=== PATIENT | male | born 1980 | race Caucasian/White ===

== ENCOUNTER 2019-12-19 14:56 | Outpatient (CLI) | payer OTHER, SELFPAY ==
--- NOTE | 2019-12-19 15:00 | ECG_ITS ---
Measurements Intervals [facility] Rate: 80 P: 52 NV: 159 QRS: 53 QRSD: 92 T: 26 QT: 350 QTc: 404 Interpretive Statements SINUS RHYTHM BASELINE ARTIFACT- V6 NORMAL ECG Electronically Signed On 12-19-2019 15:37:14 CDT by Trev Jaramillo D.O.
== END 2019-12-19 14:57 | disposition home or self-care (01) ==
LOC: ANHSURGERY 15:00
PROVIDERS: PCP Family Medicine Adolescent Medicine; Visit Provider Orthopaedic Surgery
DX: Z87.891 Personal history of nicotine dependence (principal)
CPT/HCPCS: 93005

== ENCOUNTER 2019-12-22 00:42 | Outpatient (CLI) | payer OTHER, SELFPAY ==
[2019-12-22 16:46] LABS: SARS-CoV-2 RNA PCR Negative
== END 2019-12-22 00:43 | disposition home or self-care (01) ==
LOC: ANHCOVIDDT 00:42
PROVIDERS: PCP Family Medicine Adolescent Medicine; Visit Provider Orthopaedic Surgery
DX: Z01.818 Encounter for other preprocedural examination (principal); Z11.59 Encounter for screening for other viral diseases
CPT/HCPCS: 87635; C9803; U0003

== ENCOUNTER 2019-12-25 00:46 | Day surgery (SDC) | payer OTHER, SELFPAY ==
[2019-12-17 11:39] VITALS: BMI 25.1
[2019-12-25] VITALS (8 sets, daily range): BP systolic 100–127; BP diastolic 69–101; PULSE 53–80; RESP 10–20; TEMP 36.1–36.6; O2SAT 92–99
--- NOTE | 2019-12-25 07:37 | WPDHPUPDATE1 ---
History and Physical Update Update Date/Time: 12/25/19 07:37 History and Physical has been reviewed, including an updated exam of the patient. There are NO changes in the patient's condition. Risks, benefits, and alternatives have been discussed and questions answered. Patient agrees to proceed with procedure.
[2019-12-25] MEDS: LACTATED RINGERS 1,000 ML 30 ML IV CONT ×2 (09:15→11:32)
[2019-12-25] MEDS: CELECOXIB 200 MG CAPSULE PO (09:30)
--- NOTE | 2019-12-25 09:51 | WPDANESEPP ---
Anes - Eval Pre Procedure Procedure: Operation Date: 12/25/19 10:30 Proposed Procedures p Left Elbow Repair of Common Extensor Tendon - David Grimaldo MD Date/Time: 12/25/19 09:51 Pre Op Diagnosis: Left Lateral Epicondyoitis,Left Medial Epicondyoit Patient Data Age: 39 Gender: M Height: 5 ft 11 in Weight: 87.4 kg Last Vital Signs Temp 97.8 F 12/25/19 09:39 Pulse 67 12/25/19 09:39 Resp 18 12/25/19 09:39 BP 115/69 12/25/19 09:39 Pulse Ox 97 12/25/19 09:39 Allergies Allergy/AdvReac Type Severity Reaction Status Date / Time No Known Allergies Allergy Verified 12/25/19 09:36 Home Medications Medication Instructions Recorded Confirmed Type chlorhexidine gluconate 4 % 1 applic TOPICAL ONCE #237 ml 12/10/19 12/25/19 Rx topical liquid acetaminophen [Tylenol] 650 mg PO DIRECTED PRN 12/17/19 12/25/19 History ibuprofen 800 mg PO TID PRN 12/17/19 12/25/19 History Patient hx anesthesia problems: none Family hx anesthesia problems: none PMFSH Past Medical History Medical History History of smoking Lateral epicondylitis Left elbow pain Medial epicondylitis Family History Family History Father Family history of diabetes mellitus in first degree relative Other Cerebrovascular accident Family history of allergic disorder Family history of heart disease in male family member before age 55 Hypertension Social History Social History Smoking status: Former smoker Smoking end date: 08/01/16 Alcohol intake: current Exam Day of Procedure 12/25/19 09:51 Patient weight: overweight Heart: regular rate and rhythm Airway: Mallampati scale class II Neurological: alert and oriented
--- NOTE | 2019-12-25 09:59 | WPDANESEFPP ---
Anes - Eval Final PreProcedure Day of Procedure 12/25/19 09:59 Patient weight: overweight Heart: regular rate and rhythm Lungs: decreased breath sounds Airway: Mallampati scale class II Neurological: alert and oriented Last oral intake: >/= 8 hours ASA classification: II Emergent: no Anesthetic plan: proceed Anesthesia type and monitoring: general LMA and standard monitoring Informed Consent: The patient's anesthetic plan and its attendant risks and benefits were discussed with the patient/family/POA. Questions were solicited and answers provided to the satisfaction of the patient/family/POA.
[2019-12-25] MEDS: ceFAZolin 2 GM/D5W 50 ML 2 GM/50 ML BAG IVPB (10:25)
--- NOTE | 2019-12-25 11:31 | PM.OP ---
Procedure Note - Brief Procedure Note - Brief Date of procedure: 12/25/19 Pre-op diagnosis: Left Lateral Epicondyoitis,Left Medial Epicondyoit Post-op diagnosis: same Procedure performed: LEFT TENNIS ELBOW RELEASE WITH REPAIR OF COMMON EXTENSOR TENDON Anesthesia: ARMIDA Surgeon: David Grimaldo MD Estimated blood loss (mL): 5 Drains: No Packing: No Complications: No immediate complications Condition: stable Disposition: PACU
--- NOTE | 2019-12-25 12:24 | SUR.PHASEI ---
1224 UPDATED SPOUSE AND SAID HE HAS ABOUT AN HOUR UNTIL DISCHARGE
--- NOTE | 2019-12-25 14:40 | OP_ITS ---
DATE OF PROCEDURE: 12/25/2019 PREOPERATIVE DIAGNOSIS: Left lateral epicondylitis with common extensor tendon tear. POSTOPERATIVE DIAGNOSIS: Left lateral epicondylitis with common extensor tendon tear. PROCEDURE: Release of left tennis elbow with repair of common extensor tendon. ANESTHESIA: General. COMPLICATIONS: None. INDICATIONS: This is a 39-year-old male with severe lateral epicondylitis. MRI showed lateral epicondylitis with a tear of the common extensor tendon and he was indicated for tennis elbow release with repair of common extensor tendon. DESCRIPTION OF PROCEDURE: The patient was taken to the operative room in stable condition and placed in supine position. General anesthesia was induced and then, the left upper extremity was prepped and draped sterilely from the fingers to the mid arm. The tourniquet was inflated. Incision was made along the lateral condyle down to the subcutaneous tissues. The fascia was incised and then, dissection continued until the lateral epicondyle was identified. The common extensor tendon and mainly the extensor radialis brevis were identified, there was scarring and some devitalized tissue in that region. This tissue was debrided to good healthy tissue and then, 2 Mitek suture anchors were placed in the lateral epicondyle and then, the extensor radialis brevis and common extensor tendon were then reattached to the lateral epicondyle. The repair was excellent. The wound was irrigated thoroughly. The fascial layer then was approximated with #2-0 Vicryl, the subcutaneous tissue was approximated with 3-0 Vicryl, and the 3-0 running subcuticular Quill braided type stitch was used to approximate the skin and the subcuticular edges and then, Dermabond was placed. Steri-Strips was placed. Sterile dressing was applied. A wrist cock-up splint was placed. The patient was placed in a sling. He was extubated and sent to Recovery. Rickie I MT: Andres
== END 2019-12-25 13:35 | disposition home or self-care (01) ==
PROVIDERS: PCP Family Medicine Adolescent Medicine; Visit Provider Orthopaedic Surgery
PROC: (CPT 24359; principal; 2019-12-25 10:30)
DX: M77.12 Lateral epicondylitis, left elbow (principal); M66.222 Spontaneous rupture of extensor tendons, left upper arm; Z87.891 Personal history of nicotine dependence
CPT/HCPCS: 24359; A9270; C1713; J0131; J0690; J1100; J2250; J2405; J2704; J3010; J7120

== ENCOUNTER → 2020-10-10 10:30 | Outpatient (CLI) | payer OTHER, SELFPAY ==
--- NOTE | ~2020-10-10 | MR_ITS ---
EXAMINATION: MR elbow LT wo con DATE: 10/10/2020 11:21 INDICATION: Left elbow pain. TECHNIQUE: Magnetic resonance imaging (MRI) of the left elbow was performed without intravenous contr ast. Sequences included coronal, axial, and sagittal PD-weighted FS FSE and coronal, axial, and sagit delia PD-weighted FSE. COMPARISON: Left elbow radiographs 10/06/2020 FINDINGS: Osseous/other: Bone alignment is normal. No fracture. The cartilage is unremarkable. Tendons: The biceps tendon and brachialis tendon are normal. There is severe common extensor tendinopathy with surgical changes. There is severe common flexor tendinopathy with partial tear at the medial humeral epicondyle. A skin marker overlies this area. Ligaments: There is degeneration of radial collateral ligament and lateral collateral ligament without well-defi genna tear. Ulnar collateral ligament is normal. Cubital tunnel: Ulnar nerve is normal. Fluid: There is no elbow joint effusion. IMPRESSION: 1. Severe tendinopathy and partial tear of common flexor tendon at medial humeral epicondyle. 2. Severe tendinopathy and surgical changes of common extensor tendon at lateral humeral epicondyle. Reviewed, dictated and finalized at location A. NESS OBJECTS ANALYST IMPRESSION: 1. Severe tendinopathy and partial tear of common flexor tendon at medial humer al epicondyle. 2. Severe tendinopathy and surgical changes of common extensor tendon at latera l humeral epicondyle.
== END ==
PROVIDERS: Visit Provider Orthopaedic Surgery
DX: S56.212A Strain of other flexor muscle, fascia and tendon at forearm level, left arm, initial encounter (principal)
CPT/HCPCS: 73221

== ENCOUNTER 2021-12-23 00:59 | Day surgery (SDC) | payer OTHER, SELFPAY ==
[2021-12-21 18:06] VITALS: BMI 26.4
--- NOTE | 2021-12-21 18:20 | PC.NURSE ---
Report to the Outpatient Waiting Room, entrance under the green pavilion located off [facility], at time 1000 on date 12/23/21. OR Time: ___1200 - You and your visitor will be asked a series of questions to screen for COVID 19 for your protection. - Only one visitor is allowed at this time. - The patient visitor is requested to leave or wait in car when not with patient. - A mask is required within the hospital. Patients may have clear liquids (water, carbonated beverages, clear teas, apple juice) until 3 hours prior to surgery with a maximum of 20 ounces. - No food from midnight until time of surgery - Infants may have breast milk until 4 hours before surgery, infant formula 6 hours prior to surgery. - Children will be allowed to drink immediately following surgery. If applicable, please bring a bottle or sippy cup to assist with drinking. Juice, water, soda, and popsicles are readily available. For infants on formula, please bring formula the day of surgery. Pacifiers are allowed. Take the following medications with a SIP of water the morning of surgery: Medications to discontinue per physician Date to take last dose Please no make-up, nail turkmen, hairspray, perfume, deodorant, or body powder the day of surgery. No jewelry (including any body piercings) or valuables the day of surgery, leave them at home. Please take a shower or bath the night before, or the morning of, surgery with an antibacterial soap. Wear comfortable, loose fitting clothing. Children are encouraged to wear pajamas. - Jewelry must be removed prior to entering the operating room. Rings and piercings that are not removed may be cut off. - The hospital will not accept responsibility for valuables. - Please leave all valuables, including medications, at home the day of surgery. If you are going home after surgery, a licensed driver's education instructor must drive you home. - NO public transportation without another adult. - We recommend that an adult stay with you for 24 hours following discharge. - We also recommend that you do not drive, make important decision, drink alcoholic beverages, or take any drugs that were not prescribed by your health care provider for at least 24 hours after your discharge time. For Pediatric surgeries, we recommend two adults accompany the child home (only one inside the building at this time). Follow any additional instructions given to you from your surgeon. If you or anyone in your household have experienced Covid symptoms in the past week, please notify your surgeon or the nurse liaison at the phone number below for possible testing. Telephone instructions given to Tomasz Hung and asked if any additional questions and then verbalized understanding. Patient advised to call surgeon office or pre surgery nurse liaison [phone] if any additional questions.
[2021-12-23] VITALS (8 sets, daily range): BP systolic 101–128; BP diastolic 68–82; PULSE 50–64; RESP 8–16; TEMP 36.1–36.2; O2SAT 94–100
--- NOTE | 2021-12-23 07:14 | WPDHPUPDATE1 ---
History and Physical Update Update Date/Time: 12/23/21 07:14 History and Physical has been reviewed, including an updated exam of the patient. There are NO changes in the patient's condition. Risks, benefits, and alternatives have been discussed and questions answered. Patient agrees to proceed with procedure.
[2021-12-23] MEDS: ACETAMINOPHEN 500 MG TABLET 1000 MG PO (11:41)
[2021-12-23] MEDS: CELECOXIB 200 MG CAPSULE PO (11:42)
[2021-12-23] MEDS: KETOROLAC 15 MG/ML VIAL (*BKC) IV PUSH (11:43)
[2021-12-23] MEDS: LACTATED RINGERS 1,000 ML 30 ML IV CONT ×2 (11:45→15:20)
--- NOTE | 2021-12-23 12:00 | WPDANESEPPF ---
Anes - Initial Pre Proc Eval Procedure: Operation Date: 12/23/21 12:00 Proposed Procedures p Left Common Flexor Tendon Repair, Left Cubital Tunnel Release - David Grimaldo MD Date/Time: 12/23/21 12:00 Surgeon: David Grimaldo MD Pre Op Diagnosis: Lt Flexor Tendon Tear.Cubital Tunnel Syndrome Patient Data Age: 41 Gender: M Height: 1.8 m Weight: 86 kg Allergies Allergy/AdvReac Type Severity Reaction Status Date / Time No Known Allergies Allergy Verified 10/29/21 14:21 Home Medications Medication Instructions Recorded Confirmed Type ibuprofen 800 mg tablet 800 mg PO TID PRN Pain #90 tabs 08/24/21 12/21/21 Rx Patient hx anesthesia problems: none Family hx anesthesia problems: none Results Review: All pre-operative results and documents have been reviewed as part of the pre-operative evaluation. [facility] Past Medical History Medical History History of smoking Lateral epicondylitis Left elbow pain Medial epicondylitis Family History Family History Father Family history of diabetes mellitus in first degree relative Other Cerebrovascular accident Family history of allergic disorder Family history of heart disease in male family member before age 55 Hypertension Social History Social History (Updated 12/23/21 @ 12:05 by Antonio Capellan DO) Smoking packs per day: 0.5 Smoking cigarettes per day: 10.0 Years smoked: 10 Smoking pack-years: 5.00 Smoking status: Former smoker Tobacco type: cigarettes Smoking end date: 08/01/16 Alcohol intake: current Alcohol use details: at least 12 beers 3-5 days/week Substance use: current Substance use type: marijuana Other substance usage details: medical marijuana Last use: 12/07/21 Living arrangements: with family Gender identity (if verbalized by the patient): Male Sexual Orientation (if Verbalized by the Patient): Straight or Heterosexual Spiritual care concerns: No Anes - Eval Final PreProcedure Day of Procedure 12/23/21 12:00 Patient weight: overweight Heart: regular rate and rhythm Lungs: clear to auscultation Airway: Mallampati scale class II Neurological: alert and oriented Last oral intake: >/= 8 hours ASA classification: III Emergent: no Anesthetic plan: proceed Anesthesia type and monitoring: general LMA and standard monitoring Results Review: All pre-operative results and documents have been reviewed as part of the pre-operative evaluation. Informed Consent: The patient's anesthetic plan and its attendant risks and benefits were discussed with the patient/family/POA. Questions were solicited and answers provided to the satisfaction of the patient/family/POA.
[2021-12-23] MEDS: ceFAZolin 2 GM/D5W 50 ML 2 GM/50 ML BAG IVPB (13:19)
[2021-12-23] MEDS: BUPIVACAINE HCL 0.5% PF 30 ML VIAL 20 ML INFILTRATE (14:47)
--- NOTE | 2021-12-23 15:00 | W.PM.PROC2 ---
Procedure Note - Detailed Date of Procedure 12/23/21 Pre-op Diagnosis Lt Flexor Tendon Tear.Cubital Tunnel Syndrome Post-op Diagnosis Same Procedure Performed LEFT COMMON FLEXOR TENDON REPAIR AND LEFT CUBITAL TUNNEL RELEASE Surgeon David Grimaldo MD Indications LEFT ELBOW CUBITAL TUNNEL SYNDROME, MEDIAL EPICONDYLITIS, COMMON FLEXOR TENDON TEAT Description of Procedure THE LEFT UPPER EXTREMITY WAS PREPPED AND DRAPED IN THE STERILE USUAL FASHION. THE MEDIAL SIDE OF THE ELBOW WAS IDENTIFIED. AN INCISION WAS MADE IN BETWEEN THE MEDIAL EPICONDYLE AND THE OLECRANON. THE SUB CUTANEOUS TISSUES WERE DISSECTED DOWN TO THE FASCIA LAYER. THE ULNAR NERVE WAS PALPATED. DISSECTION THROUGH THE FASCIA WAS PREFORMED UNTIL THE ULNAR NERVE WAS VISIBLE. THE CUBITAL TUNNEL THEN WAS RELEASED UNTIL THERE WAS A COMPLETE VISUALIZATION OF THE NERVE ENTERING AND EXITING THE CUBITAL TUNNEL THROUGH THE FCU TENDON. NEXT THE MEDIAL EPICONDYLE WAS EXPOSED. THE COMMON FLEXOR TENDON ORIGIN WAS IDENTIFIED. THE WAS DEGENERATIVE TISSUE AND PARTIAL TEARING OF THE OF THE ORIGIN. THE DEGENERATIVE TISSUE WAS REMOVED WITH A SHARP BLADE AND THE BONE WAS DEBRIDED TO A NICE BLEEDING BED OF BONE. THE TENDON WAS REINSERTED TO THE MEDIAL EPICONDYLE ON 3 ABSORBABLE MITEK SUTURE ANCHORS USING 0 ETHIBOND SUTURES AND A MODIFIED SEGUNDO-MJ TYPE REPAIR. THE REPAIR WAS EXCELLENT. 0 VICRYL WAS THEN USED THE REINFORCE THE TENDON EDGES. THE WOUND WAS IRRIGATED THOROUGHLY. THE TOURNIQUET WAS DEFLATED AND THE BLEEDERS CAUTERIZED. THE SUBCUTANEOUS TISSUES WERE APPROXIMATED WITH 3-0 VICRYL AND THE SKIN WITH 3-0 STRATAFIX SUTURE. DERMABOND WAS THEN APPLIED TO THE SKIN. STERILE DRESSING WAS APPLIED. A PLASTER SPLINT WAS APPLIED AND THE PATIENT WAS SENT TO THE RECOVERY ROOM IN STABLE CONDITION. Estimated Blood Loss 10 Complications No immediate complications Condition Stable Disposition PACU
[2021-12-23] MEDS: fentaNYL CITRATE INJ (*CRX) 100 MCG/2 ML VIAL 25 MCG IV PUSH ×2 (15:42→15:45)
[2021-12-23] MEDS: ONDANSETRON INJ 4 MG/2 ML VIAL IV PUSH (15:44)
[2021-12-23] MEDS: oxyCODONE HCL (*CRX) 5 MG TAB IR PO (16:33)
== END 2021-12-23 17:31 | disposition home or self-care (01) ==
PROVIDERS: PCP Family Medicine Adolescent Medicine; Visit Provider Orthopaedic Surgery
PROC: (CPT 24359; principal; 2021-12-23 12:00)
DX: G56.22 Lesion of ulnar nerve, left upper limb (principal); M77.02 Medial epicondylitis, left elbow; S56.212A Strain of other flexor muscle, fascia and tendon at forearm level, left arm, initial encounter; X58.XXXA Exposure to other specified factors, initial encounter; F12.90 Cannabis use, unspecified, uncomplicated; Z87.891 Personal history of nicotine dependence
CPT/HCPCS: 24359; A4565; A9270; C1713; J0690; J1100; J1885; J2250; J2405; J2704; J3010; J7120

== ENCOUNTER 2022-03-29 17:27 | Emergency (ER) | payer BC, SELFPAY ==
--- NOTE | ~2022-03-29 | CT_ITS ---
EXAMINATION: CT abdomen pelvis w con DATE: 03/29/2022 20:29 INDICATION: RLQ pain TECHNIQUE: Computed tomography (CT) of the abdomen and pelvis was performed 04/05/2012 intravenous cont rast. Automated exposure control and iterative reconstruction technique were employed. The dose-lengt h product was 625.59 mGy-cm. COMPARISON: None. FINDINGS: Lower thorax: Unremarkable Liver: Normal. Biliary/Gallbladder: Gallbladder is normal. No bile duct dilation. Pancreas: No mass or duct dilation. Spleen: Normal. Adrenals:No mass. Kidneys: No mass, stone, or hydronephrosis. GI tract: No small or large bowel dilation. Normal appendix. Mesentery/Peritoneum: No ascites, mass, or free air. Retroperitoneum: No mass. Pelvis: Pelvic organs are within normal limits. Soft Tissues: Soft tissues and body wall unremarkable. Bones: No acute osseous finding. IMPRESSION: No acute abdominopelvic process detected. Reviewed, dictated and finalized at location K.
--- NOTE | ~2022-03-29 | US_ITS ---
EXAMINATION: US scrotum doppler DATE: 03/29/2022 22:18 INDICATION: Right testicular pain . TECHNIQUE: Grayscale and Doppler ultrasound images of the testes were obtained. COMPARISON: None. FINDINGS: The right testis measures 5.1 x 2.7 x 3.5 cm. The left testis measures 4.5 x 2.2 x 3.3 cm. 1.1 x 1.4 cm irregular hypoechoic area in the right inferior testicle, with surrounding increased vas cularity. Relatively increased vascularity in the right testicle compared to the left. The right epid idymis is tender, enlarged, with increased vascular flow. The left epididymis is normal with normal v ascular flow. There is no varicocele or hydrocele IMPRESSION: 1.4 cm right testicular abscess with background epididymoorchitis. Reviewed, dictated and finalized at location K.
[2022-03-29 17:56] VITALS: BP 135/85; PULSE 83; RESP 13; TEMP 36.4; O2SAT 99
--- NOTE | 2022-03-29 19:54 | ED.MALEGU ---
HPI - Male Genitourinary General Chief complaint: Urogenital-Male Stated complaint: right groin and testicular pain x 1 week Time Seen by Provider: 03/29/22 19:39 Source: patient Mode of arrival: ambulatory Limitations: no limitations History of Present Illness HPI Narrative: This is a 42 year old male that presents to the ER for right groin pain present over the last week. Reports the pain radiates into his right testicle. He has had an inguinal hernia repaired on this side in the past. Denies fever, nausea, vomiting, dysuria or hematuria. Related Data Allergies Allergy/AdvReac Type Severity Reaction Status Date / Time No Known Allergies Allergy Verified 03/29/22 20:13 Review of Systems Review of Systems: CONSTITUTIONAL: Denies fever GASTROINTESTINAL: Denies abdominal pain. Denies nausea, vomiting, or diarrhea. GENITOURINARY: Denies dysuria or hematuria. All systems reviewed & are unremarkable except as noted in HPI and below PMFSH Past Medical History Medical History (Updated 03/29/22 @ 23:48 by Mary Kate Do PA-C) History of smoking Lateral epicondylitis Left elbow pain Medial epicondylitis Surgical History Surgical History (Updated 03/29/22 @ 19:55 by Mary Kate Do PA-C) History of inguinal hernia repair Family History Family History Father Family history of diabetes mellitus in first degree relative Other Cerebrovascular accident Family history of allergic disorder Family history of heart disease in male family member before age 55 Hypertension Social History Social History Smoking packs per day: 0.5 Smoking cigarettes per day: 10.0 Years smoked: 10 Smoking pack-years: 5.00 Smoking status: Former smoker Tobacco type: cigarettes Smoking end date: 08/01/16 Alcohol intake: current Alcohol use details: at least 12 beers 3-5 days/week Substance use: current Substance use type: marijuana Other substance usage details: medical marijuana Last use: 12/07/21 Gender identity (if verbalized by the patient): Male Sexual Orientation (if Verbalized by the Patient): Straight or Heterosexual Spiritual care concerns: No Exam Narrative: GENERAL: Well-appearing, well-nourished, and in no acute distress. HEAD: Normocephalic, atraumatic. EYES: EOMI. CHEST: Clear to auscultation. No respiratory distress. No wheezes rales or rhonchi HEART: Regular rate and rhythm. No murmur heard. Normal peripheral pulses. ABDOMEN: Soft, nondistended, normal active bowel sounds. Mild tenderness to palpation in the right lower quadrant without guarding. No CVA tenderness EXTREMITIES: Normal range of motion. No edema. SKIN: Warm, dry, no rash. NEURO: No focal deficits. Alert and oriented x3. PSYCH: Normal mood and affect Course Vital Signs Vital signs: Vital Signs Temperature 97.6 F 03/29/22 17:56 Pulse Rate 83 03/29/22 17:56 Respiratory Rate 13 03/29/22 17:56 Blood Pressure 135/85 03/29/22 17:56 Pulse Oximetry 99 03/29/22 17:56 Oxygen Delivery Room Air 03/29/22 17:56 Temperature 97.6 F 03/29/22 17:56 Pulse Rate 62 03/29/22 23:36 Respiratory Rate 14 03/29/22 23:36 Blood Pressure 132/73 03/29/22 23:36 Pulse Oximetry 98 03/29/22 23:36 Oxygen Delivery Room Air 03/29/22 17:56 MDM - Male Genitourinary MDM Narrative Medical decision making narrative: This is a 42 year old male that presents to the ER for right testicular pain and swelling noted over the last week. He is afebrile and nontoxic-appearing. CBC is without leukocytosis. Metabolic panel without concerning findings. UA without evidence of infection. CT scan of the abdomen and pelvis without acute findings. Scrotal ultrasound shows findings consistent with epididymoorchitis. Spoke with urology about patient and work-up. Patient will be started on Levaquin and is to f
[2022-03-29 19:58] LABS: Basophils Percent Auto 0.1 % (0.2-1.2); Eosinophils Absolute Auto 0.2 K/mm3 (0-0.3); Eosinophils Percent Auto 2.4 % (0-4.4); Hematocrit 45.4 % (42.0-52.0); Hemoglobin 15.4 g/dL (14.0-18.0); Immature Granulocyte Absolute 0.02 K/mm3 (0.00-0.031); Immature Granulocyte Percent A 0.3 % (0-0.5); Lymphocytes Absolute Auto 2.51 K/mm3 (0.9-3.2); Mean Corpuscular HGB Conc 33.9 g/dl (32-36); Mean Corpuscular Hemoglobin 31.3 pg (26-34); Mean Corpuscular Volume 92.3 fl (80-100); Mean Platelet Volume 9.7 fl (7.4-10.4); Monocytes Absolute Auto 0.7 K/mm3 (0.1-0.6); Monocytes Percent Auto 9.4 % (2.6-8.5); Neutrophils Absolute Auto 4.4 K/mm3 (1.3-6.7); Neutrophils Percent Auto 55.8 % (45.5-73.1); Platelet Count Result 221 k/mm3 (150-375); Red Blood Count 4.92 M/mm3 (4.6-6.20); Red Cell Distribution Width 13.6 % (11.5-14.5); White Blood Count 7.8 K/mm3 (4.5-10.0)
[2022-03-29 20:00] LABS: Appearance Urine Clear (Clear); Bilirubin Urine 1+ (Negative); Blood Urine Negative (Negative); Color Urine Yellow (Yellow); Glucose Urine UA Negative (Negative); Ketones Urine Negative (Negative); Leukocyte Esterase Ur Negative LEU/UL (Negative); Nitrate Urine Negative (Negative); Protein Urine Negative (Negative); Specific Grav Ur >= 1.030 (1.001-1.035); Urobilinogen Urine 0.2 mg/dL (<2.0); pH Urine 5.5 (5.0-9.0)
[2022-03-29 20:07] LABS: Mucus Urine Rare /lpf; RBC Urine 0-2 /hpf (0-2); WBC Urine 0-3 /hpf
[2022-03-29 20:08] LABS: Add Urine Microscopic? YES
[2022-03-29 20:11] LABS: Alanine Aminotransferase 38 U/L (6-50); Albumin Level 4.7 g/dL (3.5-5.1); Alkaline Phosphatase 108 U/L (38-126); Anion Gap 10 mmol/L (8-16); Aspartate Amino Transferase 29 U/L (17-59); Bilirubin,Total 0.7 mg/dL (0.2-1.3); Blood Urea Nitrogen 14 mg/dL (9-20); Calcium 9.8 mg/dL (8.4-10.2); Carbon Dioxide 27 mmol/L (22-30); Chloride 102 mmol/L (98-107); Estimated CRCL calculation 101 ml/min; Estimated Glomerular Filt Rate > 60; Glucose 99 mg/dL (65-110); Lipase 165 U/L (23-300); Sodium 139 mmol/L (137-145)
[2022-03-29] MEDS: ONDANSETRON INJ 4 MG/2 ML VIAL IV PUSH (20:11)
[2022-03-29] MEDS: MORPHINE SULFATE (*CRX) 2 MG/ML INJ IV PUSH (20:13)
[2022-03-29] MEDS: KETOROLAC 15 MG/ML VIAL (*BKC) IV PUSH (21:25)
--- NOTE | 2022-03-29 23:11 | PC.NURSE ---
report given to ARJUN Gurrola
--- NOTE | 2022-03-29 23:35 | PC.NURSE ---
Assumed care of pt at this time, report from Ayanna DÍAZ. Pt alert and upright on stretcher, updated on POC.
[2022-03-29 23:36] VITALS: BP 132/73; PULSE 62; RESP 14; O2SAT 98
[2022-03-29] MEDS: levoFLOXacin 500 MG/D5W 100 ML 500 MG/100 ML BAG 100 MG IVPB (23:46)
[2022-03-30 01:02] VITALS: BP 130/81; PULSE 59; RESP 16; O2SAT 98
== END 2022-03-30 01:02 | disposition home or self-care (01) ==
PROVIDERS: Physician Assistant; Emergency Provider Emergency Medicine
DX: N45.3 Epididymo-orchitis (principal); N45.4 Abscess of epididymis or testis; Z87.891 Personal history of nicotine dependence
CPT/HCPCS: 36415; 74177; 76870; 80053; 81001; 83690; 85025; 87491; 87591; 87661; 93976; 96365; 96367; 96375; 99284; J0131; J1885; J1956; J2270; J2405; Q9967

== ENCOUNTER 2022-07-17 10:20 | Outpatient (CLI) | payer OTHER, SELFPAY ==
--- NOTE | ~2022-07-17 | MR_ITS ---
MRI of the left elbow CLINICAL HISTORY: Pain TECHNIQUE: Coronal proton-density and proton-density fat-sat images, axial proton-density and proton- density fat-sat images, and sagittal proton-density and proton-density fat-sat images were acquired. FINDINGS: Ulnar collateral ligament is intact. Radial collateral ligament and the lateral ulnar colla teral ligament are intact. There is increased signal to the common flexor tendon origin at the medial epicondyle humerus compatible with medial epicondylitis and low-grade partial tearing. Common extens or tendon origin is essentially unremarkable. No osseous or articular abnormality seen. Bone marrow signals are unremarkable. No joint effusion. No distinct chondral lesion identified. Biceps and brachialis tendons are intact. Triceps tendon is intact. No muscle signal abnormality seen . Subcutaneous soft tissues are unremarkable. IMPRESSION: Medial epicondylitis and partial low-grade tearing at the common flexor tendon origin. Reviewed, dictated and finalized at location [] [employer]PER[employer]
== END 2022-07-17 10:21 | disposition home or self-care (01) ==
PROVIDERS: Visit Provider Orthopaedic Surgery
DX: M25.522 Pain in left elbow (principal); M77.02 Medial epicondylitis, left elbow; S56.212A Strain of other flexor muscle, fascia and tendon at forearm level, left arm, initial encounter
CPT/HCPCS: 73221